=== PATIENT | female | born 1995 | race Caucasian/White ===

== ENCOUNTER 2016-10-27 20:33 | Emergency (ER) | payer BC ==
[2016-10-27] MEDS ORDERED: NS 1,000 ML IV ONE (20:52)
[2016-10-27] MEDS ORDERED: ACETAMINOPHEN 325 MG TAB PO ONE (20:53)
[2016-10-27 21:08] LABS: % IMMATURE GRANULYOCYTES 0.3 % (0.0-1.1); ABSOLUTE IMMATURE GRANULOCYTES 0.03 10^3/uL (0.00-0.10); ADD DIFF? NO; ADD MORPH? NO; ADD SCAN? NO; ATYPICAL LYMPHOCYTE FLAG 0 (0-99); FRAGMENT RBC FLAG 0 (0-99); HEMATOCRIT 40.8 % (38.0-47.0); HEMOGLOBIN 13.8 g/dL (12.6-16.3); LEFT SHIFT FLG 0 (0-99); LIPEMIA HEMOLYSIS FLAG 90 (0-99); MEAN CELL HEMOGLOBIN 29.6 pg (27.9-34.1); MEAN CELL HEMOGLOBIN CONCENTR. 33.8 g/dL (32.4-36.7); MEAN CELL VOLUME 87.4 fL (81.5-99.8); PLATELET CLUMPS FLAG 0 (0-99); PLATELET COUNT 217 10^3/uL (150-400); RED BLOOD CELL COUNT 4.67 10^6/uL (4.18-5.33); RED CELL DISTRIBUTION WIDTH 12.8 % (11.5-15.2)
[2016-10-27] MEDS ORDERED: KETOROLAC 15 MG/1 ML SDV IVP ONE (21:15)
--- NOTE | 2016-10-27 21:20 | EDPHY ---
H & P Stated Complaint: LOMELI,decreased energy, dehydration, dizzy Time Seen by Provider: 10/27/16 20:52 HPI/ROS: Patient complains of headache. She is visiting from [facility] at [place] and [place] [facility]. She explains that they arrived , 3 days prior to this visit from [place] and on Friday night in [place] she suffered sick with [place] poisoning seen in a [place] [facility] treated with IV Benadryl and fluids with marked improvement in her symptoms. She awakened feeling well Friday and a [place] [id number] [place] or so and elevation. They return to [place] and she awakened with a mild headache this morning frontal location went back to recommend-part and another 1800 vertical foot gain [place] [id number] feet with increase in her headache described as throbbing in nature frontal bilaterally and occipital associated with mild photophobia and hyperacusis. She took 200 mg ibuprofen in the afternoon with minimal improvement and reports ongoing 6/10 pain that worsens with certain movements. She has not had this type of headache in the past. ROS: Constitutional: No fevers or chills she does have fatigue. HEENT: No recent URI symptoms. No sinus pain no sore throat. No ear pain. No tinnitus. Pulmonary: No shortness of breath. No cough. Cardiovascular: No chest pain or heart palpitations. No lightheadedness. No syncope. GI: No nausea or vomiting : Last menstrual period was now. Previous was 1 month before. no other symptoms Integumentary: No skin rash Musculoskeletal: She complains of myalgias in her legs that she attributes to hiking. 10 point ROS is otherwise negative Source: Patient Exam Limitations: No limitations - Personal History LMP (Females 10-55): 1-7 Days Ago Current Tetanus Diphtheria and Acellular Pertussis (TDAP): Yes - Medical/Surgical History Hx Asthma: Yes Hx Chronic Respiratory Disease: No Hx Diabetes: No Hx Cardiac Disease: No Hx Renal Disease: No Hx Cirrhosis: No Hx Alcoholism: No Hx HIV/AIDS: No Hx Splenectomy or Spleen Trauma: No Other PMH: asthma - Family History Significant Family History: Other (Patient's sister has migraine headaches) - Social History Smoking Status: Never smoked Alcohol Use: Rarely (No alcohol while on this vacation in [place]. She occasionally drinks wine.) Drug Use: None Additional Social History: She is accompanied by her boyfriend who flew out from [place] with her - Physical Exam Exam: Physical exam: Vital signs are normal General: Patient is in no acute distress. HEENT: Is no external evidence of trauma on exam. Eyes: Pupils are equal and reactive to light. Extraocular motions are intact. Optic fundi: Clear with no papilledema or hemorrhage. Nose atraumatic. Ears: Clear bilaterally with no hemotympanum. Oropharynx: No dental trauma or malocclusion. No intraoral lacerations. Eyes: Pupils are equal and reactive to light. Extraocular motions are intact. Optic fundi: Clear with no papilledema or hemorrhage. Lungs: Clear to auscultation bilaterally Neck: Supple no meningismus. Cardiac: Regular rate and rhythm no murmur gallop or rub. Abdomen: Soft nontender no organomegaly Neuro: GCS of 15. Cranial nerves II through XII intact. Cerebellar exam is normal as judged by symmetric rapid hand movements bilaterally. No pronator drift. No sensory or motor deficits are appreciated. Initial differential diagnosis: Altitude sickness, tension headache, dehydration, heat exhaustion, metabolic abnormality, viral illness Constitutional: Initial Vital Signs Temperature (C) 36.9 C 10/27/16 20:39 Heart Rate 85 10/27/16 20:39 Respiratory Rate 18 10/27/16 20:39 Blood Pressure 136/72 H 10/27/16 20:39 O2 Sat (%) 98 10/27/16 20:39 O2 Delivery Mode Room Air Allergies/Adverse Reactions: Fish Containing Products [fish] Allergy (Verified 10/27/16 20:44) Home Medications: Medication Instructions Recorded Albuterol 5 mg/ml INH 10/27/16 Medical Decision Making ED Course/Re-evaluation: IV normal saline bolus, Toradol 15 mg IV Tylenol 975 p.o. Patient felt significantly improved on re-examination at 10:00 p.m.. She states that she feels very tired but her headache has nearly resolved and she feels much better. I counseled patient regarding altitude sickness dehydration. Discussion: No findings to suggest SURVEY INTERVIEWER infection, intracranial bleed or other concerning findings. Patient improved significantly with treatment here. I think that she had altitude sickness and mild dehydration - Data Points Laboratory Results: Laboratory Results 10/27/16 21:00 10/27/16 21:00 10/27/16 10/27/16 10/27/16 21:00 21:00 21:00 WBC 11.50 10^3/uL H 10^3/uL (3.80-9.50) RBC 4.67 10^6/uL 10^6/uL (4.18-5.33) Hgb 13.8 g/dL g/dL (12.6-16.3) Hct 40.8 % % (38.0-47.0) MCV 87.4 fL fL (81.5-99.8) MCH 29.6 pg pg (27.9-34.1) MCHC 33.8 g/dL g/dL (32.4-36.7) RDW 12.8 % % (11.5-15.2) Plt Count 217 10^3/uL 10^3/uL (150-400) MPV 11.0 fL fL (8.7-11.7) Neut % (Auto) 46.4 % % (39.3-74.2) Lymph % (Auto) 44.1 % % (15.0-45.0) [place] % (Auto) 6.8 % % (4.5-13.0) Eos % (Auto) 1.7 % % (0.6-7.6) Baso % (Auto) 0.7 % % (0.3-1.7) Nucleat RBC Rel Count 0.0 % % (0.0-0.2) Absolute Neuts (auto) 5.34 10^3/uL 10^3/uL (1.70-6.50) Absolute Lymphs (auto) 5.07 10^3/uL H 10^3/uL (1.00-3.00) Absolute Monos (auto) 0.78 10^3/uL 10^3/uL (0.30-0.80) Absolute Eos (auto) 0.20 10^3/uL 10^3/uL (0.03-0.40) Absolute Basos (auto) 0.08 10^3/uL 10^3/uL (0.02-0.10) Absolute Nucleated RBC 0.00 10^3/uL 10^3/uL (0-0.01) Immature Gran % 0.3 % % (0.0-1.1) Immature Gran # 0.03 10^3/uL 10^3/uL (0.00-0.10) Sodium 141 mEq/L mEq/L (134-144) Potassium 3.8 mEq/L mEq/L (3.5-5.2) Chloride 106 mEq/L mEq/L (97-110) Carbon Dioxide 24 mEq/l mEq/l (22-31) Anion Gap 11 mEq/L mEq/L (8-16) BUN 18 mg/dL mg/dL (7-23) Creatinine 0.8 mg/dL mg/dL (0.6-1.0) Estimated GFR > 60 Glucose 88 mg/dL mg/dL (70-100) Calcium 9.4 mg/dL mg/dL (8.5-10.4) Beta HCG, Qual NEGATIVE Medications Given: Discontinued Medications Acetaminophen (Tylenol) 975 mg PO EDNOW ONE Stop: 10/27/16 20:54 Last Admin: 10/27/16 21:15 Dose: 975 mg Sodium Chloride (Ns) 1,000 mls @ 0 mls/hr IV EDNOW ONE; Wide Open PRN Reason: Protocol Stop: 10/27/16 20:53 Last Admin: 10/27/16 21:16 Dose: 1,000 mls Ketorolac Tromethamine (Toradol) 15 mg IVP EDNOW ONE Stop: 10/27/16 21:16 Last Admin: 10/27/16 21:19 Dose: 15 mg Departure - Departure Disposition: Home, Routine, Self-Care Clinical Impression: Acute headache Qualifiers: Headache type: unspecified Intractability: not intractable Qualified Code(s): R51 - Headache Altitude sickness Qualifiers: Encounter type: initial encounter Qualified Code(s): T70.29XA - Other effects of high altitude, initial encounter Condition: Good Instructions: Mountain Sickness (ED), Acute Headache (ED) Additional Instructions: Diagnosis: 1. Altitude sickness 2. Acute headache Plan: Drink plenty fluids Avoid going high altitude for the rest of the trip Ibuprofen and Tylenol for discomfort as needed. Take at least 400 mg of [id number] mg per 6 hours if needed. Tylenol can be 650-1000 mg per 6 hours as needed. Return for any significant worsening despite treatment plan Referrals: NONE *PRIMARY CARE P,. [Primary Care Provider] - As per Instructions
[2016-10-27 21:24] LABS: ANION GAP 11 mEq/L (8-16); CALCIUM 9.4 mg/dL (8.5-10.4); CARBON DIOXIDE 24 mEq/l (22-31); CHLORIDE 106 mEq/L (97-110); CREATININE 0.8 mg/dL (0.6-1.0); GLOMERULAR FILTRATION RATE > 60; GLUCOSE 88 mg/dL (70-100); POTASSIUM 3.8 mEq/L (3.5-5.2); SODIUM 141 mEq/L (134-144)
[2016-10-27 22:18] VITALS: BP 114/59; PULSE 78; RESP 16; TEMP 98.2; O2SAT 94
== END 2016-10-27 22:15 | disposition home or self-care (01) ==
LOC: CED 20:33
DX: R51 Headache (principal); T70.29XA Other effects of high altitude, initial encounter; E86.9 Volume depletion, unspecified; J45.909 Unspecified asthma, uncomplicated
CPT/HCPCS: 80048-PO; 84703-PO; 85025-PO; 96374; J1885